=== PATIENT | female | born 1985 ===

== ENCOUNTER 2018-05-23 10:50 | Emergency (ER) | payer MEDICAID, OTHER, SELFPAY ==
[2018-05-23 11:06] VITALS: BP 138/97
--- NOTE | 2018-05-23 11:26 | EDM.PDOC ---
ED HPI GENERAL MEDICAL PROBLEM - General Chief Complaint: Headache Stated Complaint: SOMETHING IN HEAD Time Seen by Provider: 05/23/18 11:05 Source of Information: Reports: Patient History Limitations: Reports: No Limitations - History of Present Illness INITIAL COMMENTS - FREE TEXT/NARRATIVE: This 33 yo female patient reports to the ED with left sided facial pain and pressure. The patient reports most of her symptoms are in her left cheek with increased pressure behind her left eye. The patient reports her symptoms started about 2 weeks ago, but has been getting worse. The patient reports she had several teeth extracted in the area 4-5 weeks ago. The patient reports no history of trauma or falls. The patient does reports frequent ETOH use (last use was 2 hours prior to the visit). Onset: Gradual Duration: Week(s):, Constant, Getting Worse Location: Reports: Face (left cheek and posterior eye) Quality: Reports: Ache, Pressure Severity: Moderate Improves with: Reports: None Worsens with: Reports: None Context: Reports: Other Associated Symptoms: Reports: Headaches Head Pain Score (Numeric/FACES): 10 - Related Data Allergies Allergy/AdvReac Type Severity Reaction Status Date / Time No Known Allergies Allergy Verified 05/23/18 11:07 Past Medical History HEENT History: Reports: None Cardiovascular History: Reports: None Respiratory History: Reports: None Gastrointestinal History: Reports: None Genitourinary History: Reports: None Musculoskeletal History: Reports: None Neurological History: Reports: None Psychiatric History: Reports: None Endocrine/Metabolic History: Reports: Diabetes, Gestational Hematologic History: Reports: Other (See Below) Immunologic History: Reports: None Oncologic (Cancer) History: Reports: None Dermatologic History: Reports: None - Infectious Disease History Infectious Disease History: Reports: None - Past Surgical History Female Surgical History: Reports: Section Social & Family History - Family History Family Medical History: Noncontributory HEENT: Reports: None Cardiac: Reports: None Respiratory: Reports: None GI: Reports: None : Reports: None OBGYN: Reports: None Musculoskeletal: Reports: Osteoporosis Neurological: Reports: None Psychiatric: Reports: None Endocrine/Metabolic: Reports: Hypothyroidism Hematologic: Reports: None Immunologic: Reports: None Dermatologic: Reports: None Oncologic: Reports: Colon, Skin - Tobacco Use Smoking Status *Q: Current Every Day Smoker Years of Tobacco use: 18 Packs/Tins Daily: 1 - Caffeine Use Caffeine Use: Reports: Soda - Recreational Drug Use Recreational Drug Use: No ED ROS GENERAL - Review of Systems Review Of Systems: ROS reveals no pertinent complaints other than HPI. - Physical Exam Exam: See Below Exam Limited By: No Limitations General Appearance: Alert, WD/WN, Moderate Distress Eye Exam: Bilateral Eye: EOMI, Normal Inspection, PERRL Ears: Normal External Exam, Normal Canal, Hearing Grossly Normal, Normal TMs Nose: Normal Inspection, Normal Mucosa, No Blood Throat/Mouth: Normal Inspection, Normal Lips, Normal Teeth, Normal Gums, Normal Oropharynx, Normal Voice, No Airway Compromise Head Exam: Other (left sided facial pressure and pain) Neck: Normal Inspection, Supple, Non-Tender, Full Range of Motion Respiratory/Chest: No Respiratory Distress, Lungs Clear, Normal Breath Sounds, No Accessory Muscle Use, Chest Non-Tender Cardiovascular: Normal Peripheral Pulses, Regular Rate, Rhythm, No Edema, No Gallop, No JVD, No Murmur, No Rub GI/Abdominal: Normal Bowel Sounds, Soft, Non-Tender, No Organomegaly, No Distention, No Abnormal Bruit, No Mass (Female) Exam: Deferred Rectal (Female) Exam: Deferred Neuro Exam (Abbreviated): Alert, Oriented, CN II-XII Intact, Normal Cognition, Normal Gait, Normal Reflexes, No Motor/Sensory Deficits Back Exam: Normal Inspection, Full Range of Motion, NT Extremities: Normal Inspection, Normal Range of Motion, Non-Tender, No Pedal Edema, Normal Capillary Refill Psychiatric: Normal Affect, Normal Mood Skin Exam: Warm, Dry, Intact, Normal Color, No Rash Course - Vital Signs Last Recorded V/S: Last Vital Signs Temp 36.6 C 05/23/18 11:03 Pulse 78 05/23/18 11:03 Resp 14 05/23/18 11:03 BP 138/97 H 05/23/18 11:03 Pulse Ox 100 05/23/18 11:03 - Orders/Labs/Meds Orders: Active Orders 24 hr Category Date Time Status DRUG SCREEN URINE BIORAD [URCHEM] Stat Lab 05/23/18 11:12 Ordered HCG QUALITATIVE,URINE [URCHEM] Stat Lab 05/23/18 11:12 Ordered UA W/MICROSCOPIC [URIN] Stat Lab 05/23/18 11:12 Ordered Labs: Laboratory Tests 05/23/18 05/23/18 05/23/18 Range/Units 11:14 11:14 11:14 WBC (5.0-10.0) 10^3/uL RBC (4.2-5.4) 10^6/uL Hgb (12.0-16.0) g/dL Hct (37.0-47.0) % MCV (80-100) fL MCH (27.0-34.0) pg MCHC (33.0-35.0) g/dL Plt Count (150-450) 10^3/uL Neut % (Auto) (42.2-75.2) % Lymph % (Auto) (20.5-50.1) % Carlisle % (Auto) (2-8) % Eos % (Auto) (1.0-3.0) % Baso % (Auto) (0.0-1.0) % Sodium (135-145) mmol/L Potassium (3.6-5.0) mmol/L Chloride (101-111) mmol/L Carbon Dioxide (21.0-31.0) mmol/L Anion Gap BUN (7-18) mg/dL Creatinine (0.6-1.3) mg/dL Est Cr Clr Drug Dosing mL/min Estimated GFR (MDRD) BUN/Creatinine Ratio Glucose (74-105) mg/dL Calcium (8.4-10.2) mg/dl Total Bilirubin (0.2-1.0) mg/dL AST (10-42) IU/L ALT (10-60) IU/L Alkaline Phosphatase (42-121) IU/L Total Protein (6.7-8.2) g/dl Albumin (3.2-5.5) g/dl Globulin Albumin/Globulin Ratio Urine Color Yellow (YELLOW) Urine Appearance Slightly cloudy (CLEAR) Urine pH 7.0 (5.0-9.0) Ur Specific Alton 1.015 (1.005-1.030) Urine Protein Negative (NEGATIVE) Urine Glucose (UA) Negative (NEGATIVE) Urine Ketones Negative (NEGATIVE) Urine Occult Blood Negative (NEGATIVE) Urine Nitrite Negative (NEGATIVE) Urine Bilirubin Negative (NEGATIVE) Urine Urobilinogen 0.2 (0.2-1.0) mg/dL Ur Leukocyte Esterase Negative (NEGATIVE) Urine RBC Not seen /HPF Urine WBC 0-5 (0-5/HPF) /HPF Ur Epithelial Cells Moderate H /HPF Amorphous Sediment Few (0/HPF) /HPF Urine Bacteria Few (0-FEW/HPF) /HPF Urine Mucus Few H /LPF Urine HCG, Qual Negative Urine Opiates Screen Negative (NEGATIVE) Ur Oxycodone Screen Negative (NEGATIVE) Urine Methadone Screen Negative (NEGATIVE) Ur Barbiturates Screen Negative (NEGATIVE) U Tricyclic Antidepress Negative (NEGATIVE) Ur Phencyclidine Scrn Negative (NEGATIVE) Ur Amphetamine Screen Negative (NEGATIVE) U Methamphetamines Scrn Negative (NEGATIVE) Urine MDMA Screen Negative (NEGATIVE) U Benzodiazepines Scrn Negative (NEGATIVE) Urine Cocaine Screen Negative (NEGATIVE) U Marijuana (THC) Screen Negative (NEGATIVE) Ethyl Alcohol mg/dL 05/23/18 05/23/18 Range/Units 11:18 11:18 WBC 6.4 (5.0-10.0) 10^3/uL RBC 4.19 L (4.2-5.4) 10^6/uL Hgb 12.2 D (12.0-16.0) g/dL Hct 38.6 (37.0-47.0) % MCV 92.1 D (80-100) fL MCH 29.1 (27.0-34.0) pg MCHC 31.6 L (33.0-35.0) g/dL Plt Count 222 (150-450) 10^3/uL Neut % (Auto) 63.1 (42.2-75.2) % Lymph % (Auto) 26.2 (20.5-50.1) % Carlisle % (Auto) 8.6 H (2-8) % Eos % (Auto) 1.6 (1.0-3.0) % Baso % (Auto) 0.5 (0.0-1.0) % Sodium 139 (135-145) mmol/L Potassium 3.5 L (3.6-5.0) mmol/L Chloride 102 (101-111) mmol/L Carbon Dioxide 28.0 (21.0-31.0) mmol/L Anion Gap 12.5 BUN 7 (7-18) mg/dL Creatinine 0.7 (0.6-1.3) mg/dL Est Cr Clr Drug Dosing 116.39 mL/min Estimated GFR (MDRD) > 60 BUN/Creatinine Ratio 10.00 Glucose 95 (74-105) mg/dL Calcium 8.7 (8.4-10.2) mg/dl Total Bilirubin 0.4 (0.2-1.0) mg/dL AST 47 H (10-42) IU/L ALT 42 (10-60) IU/L Alkaline Phosphatase 67 (42-121) IU/L Total Protein 7.5 (6.7-8.2) g/dl Albumin 4.0 (3.2-5.5) g/dl Globulin 3.5 Albumin/Globulin Ratio 1.14 Urine Color (YELLOW) Urine Appearance (CLEAR) Urine pH (5.0-9.0) Ur Specific Alton (1.005-1.030) Urine Protein (NEGATIVE) Urine Glucose (UA) (NEGATIVE) Urine Ketones (NEGATIVE) Urine Occult Blood (NEGATIVE) Urine Nitrite (NEGATIVE) Urine Bilirubin (NEGATIVE) Urine Urobilinogen (0.2-1.0) mg/dL Ur Leukocyte Esterase (NEGATIVE) Urine RBC /HPF Urine WBC (0-5/HPF) /HPF Ur Epithelial Cells /HPF Amorphous Sediment (0/HPF) /HPF Urine Bacteria (0-FEW/HPF) /HPF Urine Mucus /LPF Urine HCG, Qual Urine Opiates Screen (NEGATIVE) Ur Oxycodone Screen (NEGATIVE) Urine Methadone Screen (NEGATIVE) Ur Barbiturates Screen (NEGATIVE) U Tricyclic Antidepress (NEGATIVE) Ur Phencyclidine Scrn (NEGATIVE) Ur Amphetamine Screen (NEGATIVE) U Methamphetamines Scrn (NEGATIVE) Urine MDMA Screen (NEGATIVE) U Benzodiazepines Scrn (NEGATIVE) Urine Cocaine Screen (NEGATIVE) U Marijuana (THC) Screen (NEGATIVE) Ethyl Alcohol 197 mg/dL Departure - Departure Time of Disposition: 12:36 Disposition: Home, Self-Care 01 Condition: Fair Clinical Impression: Sinusitis Qualifiers: Sinusitis location: other Chronicity: acute Recurrence: non-recurrent Qualified Code(s): J01.80 - Other acute sinusitis - Discharge Information *PRESCRIPTION DRUG MONITORING PROGRAM REVIEWED*: Not Applicable *COPY OF PRESCRIPTION DRUG MONITORING REPORT IN PATIENT LONA: Not Applicable Instructions: Sinusitis, Adult, [id number], Sinus Headache, [id number] Forms: ED Department Discharge Care Plan Goals: The patient was advised of the examination, lab and CT results during the visit. The patient was discharged with a script for Augmentin (500/125) to take 1 by mouth 2 times per day for 10 days. If the patient has any additional symptoms or concerns, the patient should follow-up with her primary care facility or return to the emergency department. - My Orders Last 24 Hours: My Active Orders 05/23/18 11:12 DRUG SCREEN URINE BIORAD [URCHEM] Stat HCG QUALITATIVE,URINE [URCHEM] Stat UA W/MICROSCOPIC [URIN] Stat - Assessment/Plan Last 24 Hours: My Active Orders 05/23/18 11:12 DRUG SCREEN URINE BIORAD [URCHEM] Stat HCG QUALITATIVE,URINE [URCHEM] Stat UA W/MICROSCOPIC [URIN] Stat
[2018-05-23 11:43] LABS: ANION GAP 12.5; CHLORIDE,CL 102 mmol/L (101-111); SODIUM,NA 139 mmol/L (135-145)
--- NOTE | 2018-05-23 12:14 | CT ---
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 No known trauma. Scan technique: Volume acquisition of data unenhanced CT scan of the head and brain obtained while th e patient was lying supine on the Siemens multi slice scanner [facility]. All data archived in the PACS system for storage, reformatting axial/sagittal/coronal plane s and study (bone/brain windows). Rotational artifact. Interpretation: 1. Uniformly thick bony calvarium without skull fracture or underlying brain contusion or epidural/miramontes bdural hematoma. 2. Symmetric pitts-white matter pattern and underlying mirror-image normal ventricular system. Physiol ogic punctate pineal Ca++. 3. No supratentorial or posterior fossa mass lesion. 4. No ischemic infarct or signs of encephalomalacia. No sign of acute intracerebral/intraventricular/ subarachnoid bleed. 5. Cerebellum and brainstem unremarkable. 6. Symmetric clear pneumatization of the mastoid, sphenoid and ethmoid sinuses (subtle mucoperiosteal thickening maxillary antra). CONCLUSION: Negative emergency unenhanced CT scan head and brain.
--- NOTE | 2018-05-23 12:27 | CT ---
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 No known trauma. Unenhanced CT scan head "negative". Scan technique: Volume acquisition of data unenhanced CT scan facial bones and sinuses obtained witho ut IV contrast while patient was lying supine on the Siemens multi slice scanner [place], [place]. All data archived in the PACS system for storage, reformatting axial/sag ittal/coronal planes and study. Interpretation: 1. Solitary molar posteriorly maxillary ridge on the left with prominent "gap" anteriorly to the ipsi lateral left eye tooth. No associated foreign body, soft tissue mass/abscess or bony maxillary destru ction (osteomyelitis). No fractures. 2. Subtle mucoperiosteal inflammation maxillary antra bilaterally and small retention cyst medial wal l left maxillary sinus. Frontal, ethmoid and sphenoid sinuses are clear. Nasal septum straight midlin e and symmetric nonedematous normal nasal turbinates. 3. Satisfactory dental occlusion. No mandibular fractures. Normal temporomandibular joints. 4. Symmetric clear pneumatization of the mastoid sinuses. No fracture, tumor, or inflammatory changes . CONCLUSION: Extraction several maxillary teeth, on the left. No current evidence of left facial cellu litis, dental abscess or osteomyelitis. Chronic mild maxillary sinusitis.
== END 2018-05-23 12:46 | disposition home or self-care (01) ==
LOC: DL.ED 10:50
DX: J01.80 Other acute sinusitis (principal); F17.210 Nicotine dependence, cigarettes, uncomplicated
CPT/HCPCS: 36415; 70450; 70486; 80053; 80305; 81001; 81025; 85025; 99284; G0480

== ENCOUNTER 2018-06-11 16:37 | Emergency (ER) | payer MEDICAID, OTHER ==
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
[2018-06-11 19:18] VITALS: BP 124/81
== END 2018-06-11 19:04 | disposition home or self-care (01) ==
LOC: DL.ED 16:37
DX: Z04.41 Encounter for examination and observation following alleged adult rape (principal)
CPT/HCPCS: 80305-QW; 81001; 81025; 87491; 87591; 99285